=== PATIENT | male | born 1950 ===

== ENCOUNTER 2023-08-09 00:57 | Inpatient (IN) | payer MEDICARE ==
[2023-08-09 09:21] VITALS: BMI 45.6
[2023-08-10 15:05] VITALS: BP 161/71; TEMP 98.7
== END 2023-08-10 15:20 | disposition home or self-care (01) | DRG 189 ==
LOC: CSHTELE 00:57
PROVIDERS: ADMIT Student in an Organized Health Care Education/Training Program; ATTEND Internal Medicine
DX: J96.01 Acute respiratory failure with hypoxia (principal); J44.1 Chronic obstructive pulmonary disease with (acute) exacerbation; Z68.42 Body mass index [BMI] 45.0-49.9, adult; I12.9 Hypertensive chronic kidney disease with stage 1 through stage 4 chronic kidney disease, or unspecified chronic kidney disease; G47.33 Obstructive sleep apnea (adult) (pediatric); E66.01 Morbid (severe) obesity due to excess calories; N18.30 Chronic kidney disease, stage 3 unspecified; E11.22 Type 2 diabetes mellitus with diabetic chronic kidney disease; E78.5 Hyperlipidemia, unspecified; Z79.890 Hormone replacement therapy; Z87.891 Personal history of nicotine dependence; Z79.4 Long term (current) use of insulin
CPT/HCPCS: 36415; 36416; 80048; 85025; 87633; 87798; 93306; 94640; 94664; 94760; 94762; J1650; J1815; J1940; J1956; J2920; J2930; J7620